=== PATIENT | male | born 1970 | race Caucasian/White ===

== ENCOUNTER 2024-11-29 08:34 | Outpatient (CLI) | payer OTHER, SELFPAY ==
--- NOTE | ~2024-11-29 | XR_ITS ---
XR chest 2V 11/29/2024 09:10 Indication: Cough Procedure: 2 view chest Comparison: No prior studies for comparison. Findings: Cardiomegaly. There is pulmonary vascular congestion. The lungs are hyperinflated which is consistent with, but not diagnostic of chronic obstructive pulmonary disease. No focal air space dise ase, pulmonary edema, pleural effusion or suspected pneumothorax. Impression: 1: No acute cardiopulmonary disease. Reviewed, dictated and finalized at location A. Impression: 1: No acute cardiopulmonary disease.
--- OUTSIDE RECORDS SUMMARY | 2024-11-29 08:41 | XMS_ITS | CONTINUITY OF CARE DOCUMENT ---
Author Name [facility] [place] Address Unknown Organization [facility] Address [address] [address] [facility] [address] [place] [address] Phone [phone] Care Team Providers Care Overlocker Name Role Phone Dsuty Badlilo MD Unavailable [phone] MILA HILLMAN MD Unavailable [phone] MILA HILLMAN MD Unavailable VITAL SIGNS Date Observation Value Provider blood pressure, diastolic 101 mm[Hg] Helm blood pressure, systolic 150 mm[Hg] Josué Fontaine INSURANCE PROVIDERS Payer name Policy type / Coverage type [place] red republican ID PARVIN [facility] [id number]
--- OUTSIDE RECORDS SUMMARY | 2024-11-29 08:41 | XMS_ITS | Clinical Summary ---
Author Organization [facility] Address [address] [facility] [place] [address] Care Team Providers Care Furnace Operator Name Role Phone None, Provider MD Primary Care Provider Unavaila ble Allergies No known active allergies Medications aspirin 81 MG chewable tablet Chew 1 tablet (81 mg total) by mouth daily. 30 tablet 1 03/01/2024 Active folic acid (FOLVITE) 1 MG tablet Take 1 tablet (1 mg total) by mouth daily. 30 tablet 04/01/2024 Active vitamin B-1 (THIAMINE) 100 MG tablet Take 1 tablet (100 mg total) by mouth daily. 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 Hypertension 10/29/2014 Hyperlipidemia 10/29/2014 Family History Medical History Relation Comments Early Father NE Father Relation Status Comments Father Social History Tobacco Use Types Packs/Day Years Used Date Smoking Tobacco: Every Day Cigarettes Smokeless Tobacco: Never Tobacco Cessation:Ready to Q uit: Not Asked; Counseling Given: Not Answered Alcohol Use Standard Drinks/Week Comments Yes 0 (1 standard drink = 0.6 oz pur e alcohol) 5th a day B1300 Health Literacy Answer Date Recor ded How often do you need to hav e someone help you when you read instructions, pamphlets, or other written material from your doctor or pharmacy? Never 03/31/2024 [facility] Utilities Answer Date Recorded In the past 12 months has e [employer], [employer], oil, or water [employer] threatened to shut off services in your home? No 04/14/2024 Humiliation, Afraid, Rape, and Kick questionnair e Answer Date Recorded Within the last year, have y ou been afraid of your partner or ex-partner? No 04/14/2024 Within the last year, have y ou been humiliated or emotionally abused in other ways by your partner or ex-partner? No Within the last year, have y ou been kicked, hit, slapped, or otherwise physically hurt by your partner or ex-partner? No 04/14/2024 Within the last year, have y ou been raped or forced to have any kind of sexual activity by your partner or ex-partner? No 04/14/2024 Social Connection and Isolat ion Panel [NHANES] Answer Date Recorded In a typical week, how many times do you talk on the phone with family, friends, or neighbors? More than three times a week 03/31/2024 How often do you get togethe r with friends or relatives? Three times a week 03/31/2024 How often do you attend chur ch or faith services? 1 to 4 times per year 03/31/2024 Do you belong to any clubs o r organizations such as sikhism groups, unions, fraternal or athletic groups, or school groups? No 03/31/2024 How often do you attend meet ings of the clubs or organizations you belong to? Never 03/31/2024 Are you , , di vorced, , never , or living with a partner? 03/31/2024 AUDIT-C Answer Date Recorded Q1: How often do you have a drink containing alcohol? 4 or more times a week 04/14/2024 Q2: How many drinks containi ng alcohol do you have on a typical day when you are drinking? 10 or more Q3: How often do you have si x or more drinks on one occasion? Daily or almost daily 04/14/2024 Overall Financial Resource Strain (CARDIA) Answe r Date Recorded How hard is it for you to pa y for the very basics like food, housing, medical care, and heating? Somewhat hard 04/14/2024 [facility] Occup[facility] ional [facility] - Occupational Stress Questionnaire Answer Date Recorded Do you feel stress - tense, restless, nervous, or anxious, or unable to sleep at night because your mind is troubled all the time - these days? Not at all 03/31/2024 Exercise Vital Sign Answer Date Recorde d On average, how many days pe r week do you engage in moderate to strenuous exercise (like a brisk walk)? 4 days 03/31/2024 On average, how many minutes do you engage in exercise at this level? 30 min 03/31/2024 Hunger Vital Sign Answer Date Recorded Within the past 12 months, y ou worried that your food would run out before you got the money to buy more. Never true 04/14/20 24 Within the past 12 months, t he food you bought just didn't last and you didn't have money to get more. Never true 04/14/2024 PRAPARE - Transportation Answer Date Re corded In the past 12 months, has l ack of transportation kept you from medical appointments or from getting medications? No 04/01 In the past 12 months, has l ack of transportation kept you from meetings, work, or from getting things needed for daily living? No 04/14/2024 Housing Stability Vital Sign Answer Abilio e Recorded In the last 12 months, was t here a time when you were not able to pay the mortgage or rent on time? No 04/14/2024 In the past 12 months, how m any times have you moved where you were living? 1 04/14/2024 At any time in the past 12 m [facility], were you homeless or living in a alf (including now)? No 04/14/2024 Sex and Gender Information Value Date Recorded Sex Assigned at Not on file Legal Sex Male 7:40 PM CDT Gender Identity Not on file Sexual Orientation Not on file Last Filed Vital Signs Vital Sign Reading Time Taken Comments Blood Pressure 148/87 04/17/2024 7:57 AM CDT Pulse 94 04/17/2024 7:57 AM CDT Temperature 37.1 C (98.8 F) 04/17/2024 7:57 AM CDT Respiratory Rate 20 04/17/2024 7:57 AM CDT Oxygen Saturation 95% 04/17/2024 7:57 AM CDT Inhaled Oxygen Concentration - - Weight 117.8 kg (259 lb 11.2 oz) 04/17/2024 4:03 AM CDT Height 182.9 cm (6') 04/14/2024 3:09 PM CDT Body Mass Index 35.22 04/14/2024 3:09 PM CDT Plan of Treatment Health Maintenance Due Date Last Done Comments ASCVD Statin 1969 Colorectal Cancer Screening Colonoscopy (10 Years) 1969 Annual Physical 1972 Hepatitis C 1987 Hepatitis B Vaccines (1 of 3 - 19+ 3-dose series) 1988 Pneumococcal Vaccine: 50+ Years (1 of 2 - PCV) 1988 Zoster Vaccines (1 of 2) 2019 ASCVD LDL 11/25/2021 11/25/2020, 03/25/2017, 03/25/2017 COVID-19 Vaccine (1 - 2023-2 5 season) 2024 DTaP, Tdap and Td Vaccines ( 2 - Td or Tdap) 02/03/2032 02/02/2022 Meningococcal B Vaccine Aged Out No l onger eligible based on patient's age to complete this topic Meningococcal Vaccine Aged Out No negro zulay eligible based on patient's age to complete this topic RSV Immunizations Under 20 Months Aged Out No longer eligible b ased on patient's age to complete this topic Goals Goal Patient Goal Type Associated Problems Recent Progress Patient-Stated? Author Establish Regular Follow-Ups with PCP Yuan Lane RN Procedures Procedure Name Priority Date/Time Associated Diagnosis Comments LIPID PANEL Routine 11/25/2020 5:10 AM CDT from Last 3 Months or Most Recently Relevant to Health Maintenance Results * (ABNORMAL) LIPID PANEL (11/25/2020 5:10 AM CDT) CHOLESTEROL 238(H) <200 MG/DL 11/25/2020 6:07 AM CDT [facility] TRIGLYCERIDES 176(H) <150 MG/DL 11/25/2020 6:07 AM CDT [facility] HDL 55 >40.0 MG/DL 11/25/2020 6:07 AM CDT [facility] LDL (CALCULATED) 148(H) <100 MG/DL 11/25/2020 6:07 AM CDT [facility] NON HDL CHOLESTEROL 183(H) <130 MG/DL 11/25/2020 6:07 AM CDT [facility] CHOL/HDL RATIO 4.3 0.0 - 4.5 11/25/2020 6:07 AM CDT [facility] VLDL CALCULATION 35 5 - 55 MG/DL 11/25/2020 6:07 AM CDT [facility] LIPID INTERPRETATION 11/25/2020 6:07 AM T [facility] Comment: [facility] REPORT RECOMMENDATIONS: ADULT CHILD LOW RISK: CHOLESTEROL <200 <170 TRIGLYCERIDE <150 --- HDL >=60 --- LDL <100 <110 BORDERLINE: CHOLESTEROL 200-239 170-199 TRIGLYCERIDE 150-199 --- HDL 40-59 --- LDL 100-159 110-129 HIGH RISK: CHOLESTEROL >=240 >=200 TRIGLYCERIDE >=200 --- HDL <40 --- LDL >=160 >=130 11/25/2020 5:10 AM CDT Mable Rincon [facility] Final Resul t [facility] [address] [place] [address], [place] [phone] from Last 3 Months or Most Recently Relevant to Health Maintenance Insurance [place] Advance Directives Documents on File Type Date Recorded 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 Advance Directives and Living Will 11/26/2020 9:36 AM 11/25/2020 signed POA for Health Care * Full Code (Latest Code Status on File) Date Activated Date Inactivated Comments 04/14/2024 5:40 PM 04/17/2024 1:55 PM * Full Code Date Activated Date Inactivated Comments 03/31/2024 1:09 AM 03/31/2024 5:13 PM * Full Code Date Activated Date Inactivated Comments 11/25/2020 1:13 PM 11/26/2020 1:31 PM * Full Code Date Activated Date Inactivated Comments 11/24/2020 7:23 PM 11/25/2020 1:13 PM Care Teams Furnace Operator Relationship Specialty Start Date End Date None, Provider, MD PCP - General UNKNOWN PHYSICIAN SPECIALTY 03/01/24
[2024-11-29 08:55] LABS: Hematocrit 45.5 % (42.0-52.0); Hemoglobin 14.7 g/dL (14.0-18.0); Mean Corpuscular HGB Conc 32.3 g/dl (32-36); Mean Corpuscular Hemoglobin 31.9 pg (26-34); Mean Corpuscular Volume 98.7 fl (80-100); Mean Platelet Volume 9.1 fl (7.4-10.4); Platelet Count Result 181 k/mm3 (150-375); Red Blood Count 4.61 M/mm3 (4.6-6.20); White Blood Count 5.9 K/mm3 (4.5-10.0)
[2024-11-29 09:49] LABS: Hemoglobin A1C 5.6 % (<5.7)
[2024-11-29 09:52] LABS: Add Urine Microscopic? YES; Appearance Urine Clear (Clear); Bacteria Urine None Seen /hpf; Bilirubin Urine 1+ (Negative); Blood Urine Negative (Negative); Calcium Oxalate Crystals Urine Present /hpf; Color Urine Dark Yellow (Yellow); Glucose Urine UA Negative (Negative); Ketones Urine Trace mg/dL (Negative); Leukocyte Esterase Ur Trace LEU/UL (Negative); Need Manual Microscopic Reviewed; Nitrate Urine Negative (Negative); Non Pathogenic Casts 0-2; Protein Urine 1+ mg/dL (Negative); RBC Urine 0-2 /hpf (0-2); Squamous Epithelial Cell Urine Occasional /hpf (Few); pH Urine 5.5 (5.0-9.0)
[2024-11-29 10:33] LABS: Alanine Aminotransferase 35 U/L (6-50); Albumin Level 4.1 g/dL (3.5-5.1); Alkaline Phosphatase 107 U/L (38-126); Anion Gap 8 mmol/L (4-12); Aspartate Amino Transferase 52 U/L (17-59); Bilirubin,Total 0.5 mg/dL (0.2-1.3); Blood Urea Nitrogen 8 mg/dL (9-20); Calcium 8.9 mg/dL (8.4-10.2); Carbon Dioxide 30 mmol/L (22-30); Chloride 98 mmol/L (98-107); Cholesterol 240 mg/dL (0-200); Estimated Glomerular Filt Rate > 60; Folic Acid 4.7 ng/mL (2.76->20); Glucose 112 mg/dL (65-110); HDL Direct 47 mg/dL; LDL Cholesterol Direct 147 mg/dL; Potassium 3.6 mmol/L (3.4-5.0); Prostate Specific Antigen 0.9 ng/mL (< OR = 4.0); Sodium 136 mmol/L (137-145); Triglycerides 230 mg/dL (<150)
== END 2024-11-29 08:35 | disposition home or self-care (01) ==
PROVIDERS: PCP Nurse Practitioner Family; Visit Provider Nurse Practitioner Family
DX: R05.9 Cough, unspecified (principal); R50.9 Fever, unspecified; Z76.89 Persons encountering health services in other specified circumstances; Z00.00 Encounter for general adult medical examination without abnormal findings; R39.11 Hesitancy of micturition; Z68.36 Body mass index [BMI] 36.0-36.9, adult; F10.90 Alcohol use, unspecified, uncomplicated; I10 Essential (primary) hypertension; I25.10 Atherosclerotic heart disease of native coronary artery without angina pectoris; G25.81 Restless legs syndrome; G47.10 Hypersomnia, unspecified; G47.9 Sleep disorder, unspecified; Z12.5 Encounter for screening for malignant neoplasm of prostate
CPT/HCPCS: 36415; 71046; 80053; 80061; 81001; 82607; 82728; 82746; 83036; 84153; 84443; 85027; 87086; G0103